=== PATIENT | male | born 1940 | race Caucasian/White ===

== ENCOUNTER 2022-04-17 03:12 | Emergency (ER) | payer OTHER ==
[~2022-04-17] VITALS: Ht 180.3 cm; Wt 88.6 kg
[~2022-04-17 03:12] MED LIST: ACYCLOVIR400 MG PO; ASPIRIN ADULT L81 M2 PO; B12-FOLIC ACID1 EACH PO; CELECOXIB200 M1 PO; CLARITIN10 MG PO; DONEPEZIL HYDROC5 M1 PO; FINASTERIDE5 M1 PO; FLOMAX0.4 MG PO; MULTIVITAMINS1 EAC6 PO; PRAVASTATIN SOD20 MG PO; PRAVASTATIN SOD40 MG PO; RIVASTIGMINE T1.5 M1 PO
== END 2022-04-17 04:18 ==
LOC: ED 03:12
DX: R07.89 Other chest pain (principal); Z88.8 Allergy status to other drugs, medicaments and biological substances; Z79.899 Other long term (current) drug therapy

== ENCOUNTER 2022-04-22 01:14 | Emergency (ER) | payer OTHER ==
[~2022-04-22] VITALS: Ht 170.1 cm; Wt 84.8 kg
[2022-04-22 01:41] LABS: BASO % 0.3 % (0.0-1.0); EOS % 0.3 % (1.0-4.0); HEMATOCRIT 40.5 % (42.0-52.0); LYMPH # 0.8 10*3/uL (1.3-4.4); LYMPH % 12.6 % (27.0-41.0); MEAN CORPUSCULAR HGB 32.3 pg (27.0-31.0); MEAN CORPUSCULAR HGB CONC 34.3 g/dl (33.0-37.0); MONO # 0.8 10*3/uL (0.1-1.0); MONO % 12.7 % (3.0-9.0); NEUT # 4.6 10*3/uL (2.3-7.9); NEUT % 73.6 % (47.0-73.0); PLATELET COUNT AUTOMATED 201 10*3/uL (130-400); RED BLOOD COUNT 4.31 10*6/uL (4.50-5.90); WHITE BLOOD COUNT 6.2 10*3/uL (4.8-10.8)
[2022-04-22 01:54] LABS: BUN 17 mg/dl (9-23); CHLORIDE 101 mmol/L (98-107); POTASSIUM 3.8 mmol/L (3.4-5.1)
[2022-04-22 02:07] LABS: ACT PARTIAL THROMBO TIME 30.1 SECONDS (20.0-32.1)
[2022-04-22 02:30] LABS: BILIRUBIN Negative (Negative); BLOOD Negative (Negative); CLARITY Clear (Clear); COLOR Yellow (Yellow); GLUCOSE Negative (Negative); KETONE Negative (Negative); LEUKO ESTERASE Negative (Negative); NITRITE Negative (Negative); PH 5.5 (4.5-8.0); UROBILINOGEN 0.2 E.U./dl (0.0-1.0)
[2022-04-22 02:50] LABS: EPITHELIAL CELLS 0-2; WBC 0-2 wbc/hpf (0-5)
== END 2022-04-22 04:11 ==
LOC: ED 01:14
PROVIDERS: Emergency Medicine
DX: S00.81XA Abrasion of other part of head, initial encounter (principal); S40.211A Abrasion of right shoulder, initial encounter; S60.511A Abrasion of right hand, initial encounter; E86.0 Dehydration; E87.1 Hypo-osmolality and hyponatremia; Z88.8 Allergy status to other drugs, medicaments and biological substances; Z79.899 Other long term (current) drug therapy; W19.XXXA Unspecified fall, initial encounter; Y93.89 Activity, other specified; Y92.129 Unspecified place in nursing home as the place of occurrence of the external cause; Y99.8 Other external cause status

== ENCOUNTER → 2023-08-18 | Outpatient (CLI) | payer OTHER | END | disposition home or self-care (01) | LOC: CARD 08-03 15:00 | PROVIDERS: ATTEND Internal Medicine Cardiovascular Disease | DX: I08.2 Rheumatic disorders of both aortic and tricuspid valves (principal); I31.39 Other pericardial effusion (noninflammatory); R60.0 Localized edema; R01.1 Cardiac murmur, unspecified; Z95.0 Presence of cardiac pacemaker; Z87.898 Personal history of other specified conditions ==

== ENCOUNTER → 2023-11-17 | Outpatient (CLI) | payer OTHER | END | disposition home or self-care (01) | LOC: ORTHO 02:23 | PROVIDERS: ATTEND Orthopaedic Surgery | DX: S42.201D Unspecified fracture of upper end of right humerus, subsequent encounter for fracture with routine healing (principal); X58.XXXD Exposure to other specified factors, subsequent encounter ==

== ENCOUNTER → 2023-12-03 | Outpatient (CLI) | payer OTHER | END | disposition home or self-care (01) | LOC: ORTHO 02:07 | PROVIDERS: ATTEND Orthopaedic Surgery | DX: S42.201D Unspecified fracture of upper end of right humerus, subsequent encounter for fracture with routine healing (principal); M25.511 Pain in right shoulder; X58.XXXD Exposure to other specified factors, subsequent encounter ==

== ENCOUNTER 2023-12-23 16:04 | Inpatient (IN) | payer OTHER ==
[~2023-12-23] VITALS: Ht 172.7 cm; Wt 78.6 kg
[2023-12-23 16:09] VITALS: BP 133/58
[2023-12-23 17:10] LABS: BASO % 0.1 % (0.0-1.0); HEMATOCRIT 41.8 % (42.0-52.0); MEAN CELL VOLUME 94.4 fl (80.0-94.0); MEAN CORPUSCULAR HGB 32.3 pg (27.0-31.0); MEAN CORPUSCULAR HGB CONC 34.2 g/dl (33.0-37.0); MEAN PLATELET VOLUME 10.6 fl (9.6-12.3); MONO # 0.6 10*3/uL (0.1-1.0); MONO % 6.8 % (3.0-9.0); NEUT # 7.9 10*3/uL (2.3-7.9); NEUT % 86.2 % (47.0-73.0); PLATELET COUNT AUTOMATED 223 10*3/uL (130-400); RED BLOOD COUNT 4.43 10*6/uL (4.50-5.90); RED CELL DISTRI WIDTH 12.1 % (0-14.5); WHITE BLOOD COUNT 9.2 10*3/uL (4.8-10.8)
[2023-12-23 17:36] LABS: BILIRUBIN Negative (Negative); BLOOD Trace-Lysed (Negative); CLARITY Clear (Clear); COLOR Yellow (Yellow); GLUCOSE Negative (Negative); KETONE 3+ (Negative); LEUKO ESTERASE Negative (Negative); NITRITE Negative (Negative); PH 5.5 (4.5-8.0); SPECIFIC GRAVITY 1.025 (1.001-1.030)
[2023-12-23 17:51] LABS: MUCOUS 2+
[2023-12-23 18:10] LABS: BUN 18 mg/dl (9-23); CHLORIDE 108 mmol/L (98-107); POTASSIUM 3.1 mmol/L (3.4-5.1)
[2023-12-23 18:12] LABS: CPK 2333 U/L (34-171)
[2023-12-23] MEDS ORDERED: SODIUM CHLORIDE 0.9% 1,000 ML IV ONE (18:20)
[2023-12-23] MEDS ORDERED: ACETAMINOPHEN 325 MG TAB PO PRN (19:55)
[2023-12-23] MEDS ORDERED: Ondansetron Hydrochloride 4 MG/2 ML VIAL IV PRN (19:55)
[2023-12-23] MEDS ORDERED: TEMAZEPAM 15 MG CAP PO PRN (19:55)
[2023-12-23] MEDS ORDERED: BISACODYL 5 MG TAB PO PRN (19:55)
[2023-12-23] MEDS ORDERED: Acetaminophen/Hydrocodone 5 MG/325 MG TABLET PO PRN (19:55)
[2023-12-23] MEDS ORDERED: Magnesium Hydroxide 30 ML UDC PO PRN (19:55)
[2023-12-23] MEDS ORDERED: BISACODYL 10 MG SUPP R PRN (19:55)
[2023-12-23] MEDS ORDERED: ACETAMINOPHEN 650 MG SUPP R PRN (19:55)
[2023-12-23 20:27] VITALS: BP 130/60
[2023-12-23] MEDS ORDERED: POTASSIUM CHLORIDE 20 MEQ TAB PO ONE (20:40)
[2023-12-23] MEDS ORDERED: SODIUM CHLORIDE 0.9% 1,000 ML IV SCH (20:50)
[2023-12-24 03:13] VITALS: BP 136/71
[2023-12-24 05:14] LABS: VITAMIN D, 25-HYDROXY 25.8 ng/mL (30-100)
[2023-12-24 05:21] LABS: ALKALINE PHOSPHATASE 120 U/L (46-116); BUN 16 mg/dl (9-23); CHLORIDE 110 mmol/L (98-107); CHOLESTEROL 142 mg/dL (<200); CPK 2544 U/L (34-171); FREE T4 0.91 ng/dl (0.89-1.76); LDL CHOLESTEROL 74 mg/dL (9-159); POTASSIUM 2.8 mmol/L (3.4-5.1); SGPT/ALT 32 U/L (5-49); TRIGLYCERIDES 61 mg/dl (<150)
[2023-12-24] MEDS ORDERED: POTASSIUM CHLORIDE 20 MEQ TAB PO ONE ×3 (05:45→16:15)
[2023-12-24 06:01] LABS: BASO % 0.1 % (0.0-1.0); EOS % 0.1 % (1.0-4.0); HEMATOCRIT 38.6 % (42.0-52.0); MEAN CELL VOLUME 95.3 fl (80.0-94.0); MEAN CORPUSCULAR HGB 32.1 pg (27.0-31.0); MEAN CORPUSCULAR HGB CONC 33.7 g/dl (33.0-37.0); MEAN PLATELET VOLUME 10.7 fl (9.6-12.3); MONO # 0.7 10*3/uL (0.1-1.0); MONO % 10.9 % (3.0-9.0); NEUT # 5.1 10*3/uL (2.3-7.9); NEUT % 76.3 % (47.0-73.0); PLATELET COUNT AUTOMATED 180 10*3/uL (130-400); RED BLOOD COUNT 4.05 10*6/uL (4.50-5.90); RED CELL DISTRI WIDTH 12.3 % (0-14.5); WHITE BLOOD COUNT 6.7 10*3/uL (4.8-10.8)
[2023-12-24 08:16] VITALS: BP 165/68
[2023-12-24] MEDS ORDERED: Enoxaparin Sodium 40 MG/0.4 ML SYR SC SCH (10:00)
[2023-12-24] MEDS ORDERED: Vitamin D 1,000 IU TAB (25 MCG) PO SCH (10:00)
[2023-12-24 14:59] LABS: BUN 18 mg/dl (9-23); CHLORIDE 112 mmol/L (98-107); POTASSIUM 3.5 mmol/L (3.4-5.1)
[2023-12-24 16:33] VITALS: BP 165/87
[2023-12-24 20:00] VITALS: BP 146/81
[2023-12-24] MEDS ORDERED: TAMSULOSIN HCL0.4 MG PO (20:14)
[2023-12-24] MEDS ORDERED: DONEPEZIL HYDRO10 MG PO (20:15)
[2023-12-24] MEDS ORDERED: Tamsulosin Hydrochloride 0.4 MG CAP PO SCH (21:40)
[2023-12-24] MEDS ORDERED: CELECOXIB 200 MG CAP PO SCH (22:00)
[2023-12-24] MEDS ORDERED: DONEPEZIL 10 MG TAB PO SCH (22:00)
[2023-12-25] VITALS: BP 144/74
[2023-12-25] MEDS ORDERED: MORPHINE Sulfate 2 MG/ML SYR IV ONE (00:20)
[2023-12-25 05:52] LABS: BUN 17 mg/dl (9-23); CHLORIDE 111 mmol/L (98-107); POTASSIUM 3.5 mmol/L (3.4-5.1)
[2023-12-25 06:14] LABS: BASO % 0.3 % (0.0-1.0); EOS % 0.6 % (1.0-4.0); HEMATOCRIT 38.4 % (42.0-52.0); MEAN CELL VOLUME 96.5 fl (80.0-94.0); MEAN CORPUSCULAR HGB 31.7 pg (27.0-31.0); MEAN CORPUSCULAR HGB CONC 32.8 g/dl (33.0-37.0); MEAN PLATELET VOLUME 10.4 fl (9.6-12.3); MONO # 0.7 10*3/uL (0.1-1.0); MONO % 11.1 % (3.0-9.0); NEUT # 4.9 10*3/uL (2.3-7.9); NEUT % 74.1 % (47.0-73.0); PLATELET COUNT AUTOMATED 173 10*3/uL (130-400); RED BLOOD COUNT 3.98 10*6/uL (4.50-5.90); RED CELL DISTRI WIDTH 12.4 % (0-14.5); WHITE BLOOD COUNT 6.6 10*3/uL (4.8-10.8)
[2023-12-25 06:42] LABS: CPK 1325 U/L (34-171)
[2023-12-25 08:00] VITALS: BP 120/70
[2023-12-25] MEDS ORDERED: FINASTERIDE 5 MG TAB PO SCH (10:00)
[2023-12-25] MEDS ORDERED: SIMVASTATIN 20 MG TAB PO SCH (10:00)
[2023-12-25] MEDS ORDERED: Tamsulosin Hydrochloride 0.4 MG CAP PO SCH (10:00)
[2023-12-25 12:00] VITALS: BP 134/59
[2023-12-25 16:00] VITALS: BP 160/70
[2023-12-25 20:00] VITALS: BP 176/100
[2023-12-25 22:00] VITALS: BP 152/66
[2023-12-26] VITALS: BP 141/62
[2023-12-26 08:00] VITALS: BP 159/67
[2023-12-26 12:00] VITALS: BP 160/70
[2023-12-26 16:00] VITALS: BP 155/75
[2023-12-26 20:00] VITALS: BP 148/70
[2023-12-27 08:00] VITALS: BP 160/58
[2023-12-27 12:00] VITALS: BP 164/84
[2023-12-27 16:00] VITALS: BP 169/71
[2023-12-27 20:00] VITALS: BP 193/98
[2023-12-27] MEDS ORDERED: hydrALAZINE hydrochloride 20 MG/ML VIAL IV ONE (20:55)
[2023-12-27 21:00] VITALS: BP 200/120
[2023-12-27 22:24] VITALS: BP 155/63
[2023-12-28] VITALS: BP 147/74
[2023-12-28 08:00] VITALS: BP 145/48; BP 158/82
[2023-12-28] MEDS ORDERED: SODIUM CHLORIDE 0.9% 1,000 ML IV ONE (08:15)
[2023-12-28 08:31] LABS: ALKALINE PHOSPHATASE 114 U/L (46-116); BUN 17 mg/dl (9-23); CHLORIDE 104 mmol/L (98-107); POTASSIUM 3.5 mmol/L (3.4-5.1); SGPT/ALT 28 U/L (5-49); TOTAL PROTEIN 6.3 gm/dL (6.0-8.0)
[2023-12-28] MEDS ORDERED: LISINOPRIL 5 MG TAB PO SCH (10:00)
[2023-12-28 12:00] VITALS: BP 146/64
[2023-12-28 16:00] VITALS: BP 129/66
[2023-12-28 20:00] VITALS: BP 98/54
[2023-12-29] VITALS: BP 137/79
[2023-12-29 08:00] VITALS: BP 101/55
[2023-12-29 12:00] VITALS: BP 133/70
[2023-12-29] MEDS ORDERED: LISINOPRIL5 MG PO (13:53)
[2023-12-29] MEDS ORDERED: VITAMIN D350 MC2 PO (13:53)
== END 2023-12-29 17:28 | DRG 565 ==
LOC: ED 16:04 → 4E 18:46 → EDHOLD 18:46 → 4E 12-24 16:13
PROVIDERS: Family Medicine; Physician Assistant Medical; Student in an Organized Health Care Education/Training Program; ADMIT Student in an Organized Health Care Education/Training Program; ATTEND Student in an Organized Health Care Education/Training Program
DX: T79.6XXA Traumatic ischemia of muscle, initial encounter (principal); G23.8 Other specified degenerative diseases of basal ganglia; G31.83 Neurocognitive disorder with Lewy bodies; E87.6 Hypokalemia; D53.9 Nutritional anemia, unspecified; Z95.0 Presence of cardiac pacemaker; Z66 Do not resuscitate; R54 Age-related physical debility; F02.80 Dementia in other diseases classified elsewhere, unspecified severity, without behavioral disturbance, psychotic disturbance, mood disturbance, and anxiety; N40.0 Benign prostatic hyperplasia without lower urinary tract symptoms; I25.10 Atherosclerotic heart disease of native coronary artery without angina pectoris; E80.6 Other disorders of bilirubin metabolism; E78.2 Mixed hyperlipidemia; R74.01 Elevation of levels of liver transaminase levels; E55.9 Vitamin D deficiency, unspecified; R00.1 Bradycardia, unspecified; W18.39XA Other fall on same level, initial encounter; Y93.89 Activity, other specified; Y92.89 Other specified places as the place of occurrence of the external cause; Y99.8 Other external cause status; Z88.8 Allergy status to other drugs, medicaments and biological substances; Z79.82 Long term (current) use of aspirin; Z79.899 Other long term (current) drug therapy

== ENCOUNTER → 2024-06-28 | Outpatient (CLI) | payer MEDICARE ==
[~2024-06-28] MED LIST changes: +DONEPEZIL HYDRO10 MG PO; +LISINOPRIL5 MG PO; +OXYCODONE-ACET1 EAC3 PO; +PHARMASSURE V500 MCG PO; +TAMSULOSIN HCL0.4 MG PO; +VITAMIN D350 MC2 PO; +VITAMIN D350 MCG PO
== END | disposition home or self-care (01) ==
LOC: ORTHO 01:33
PROVIDERS: ATTEND Orthopaedic Surgery
DX: S72.034A Nondisplaced midcervical fracture of right femur, initial encounter for closed fracture (principal); X58.XXXA Exposure to other specified factors, initial encounter; Y93.89 Activity, other specified; Y92.89 Other specified places as the place of occurrence of the external cause; Y99.8 Other external cause status

== ENCOUNTER → 2024-07-26 | Outpatient (CLI) | payer MEDICARE | END | disposition home or self-care (01) | LOC: ORTHO 00:56 | PROVIDERS: ATTEND Orthopaedic Surgery | DX: S72.034D Nondisplaced midcervical fracture of right femur, subsequent encounter for closed fracture with routine healing (principal); X58.XXXD Exposure to other specified factors, subsequent encounter ==

== ENCOUNTER → 2024-09-01 | Outpatient (CLI) | payer OTHER | END | disposition home or self-care (01) | LOC: ORTHO 13:41 | PROVIDERS: ATTEND Orthopaedic Surgery | DX: S72.034D Nondisplaced midcervical fracture of right femur, subsequent encounter for closed fracture with routine healing (principal); Z47.89 Encounter for other orthopedic aftercare; X58.XXXD Exposure to other specified factors, subsequent encounter ==

== ENCOUNTER 2024-10-01 20:38 | Emergency (ER) | payer MEDICARE ==
[~2024-10-01] VITALS: Ht 172.7 cm; Wt 68.0 kg
[2024-10-01] MEDS ORDERED: Tdap Vaccine 0.5 ML SYR (Adult Vaccine) IM ONE (21:20)
[2024-10-01 21:52] LABS: BASO # 0.0 10*3/uL (0.0-0.1); BASO % 0.6 % (0.0-1.0); EOS # 0.0 10*3/uL (0.0-0.4); EOS % 0.6 % (1.0-4.0); MEAN CELL VOLUME 98.3 fl (80.0-94.0); MEAN CORPUSCULAR HGB 31.8 pg (27.0-31.0); MEAN PLATELET VOLUME 9.7 fl (9.6-12.3); MONO # 0.5 10*3/uL (0.1-1.0); MONO % 10.2 % (3.0-9.0); NEUT # 3.2 10*3/uL (2.3-7.9); NEUT % 64.8 % (47.0-73.0); NUCLEATED RED BLOOD CELL 0.0 % (0.0-0.0); NUCLEATED RED BLOOD CELL 0.0 10*3/uL (0.0-0.0); PLATELET COUNT AUTOMATED 178 10*3/uL (130-400); RED CELL DISTRI WIDTH 11.9 % (0-14.5)
[2024-10-01 22:19] LABS: BUN 16 mg/dl (9-23); SGPT/ALT 22 U/L (5-49)
[2024-10-01] MEDS ORDERED: hydrALAZINE hydrochloride 20 MG/ML VIAL IV ONE (22:40)
[2024-10-01] MEDS ORDERED: SODIUM CHLORIDE 0.9% 1,000 ML IV ONE (22:45)
== END 2024-10-01 23:19 | disposition short-term general hospital (02) ==
LOC: ED 20:38
PROVIDERS: Nurse Practitioner
DX: I61.9 Nontraumatic intracerebral hemorrhage, unspecified (principal)

== ENCOUNTER 2024-11-10 12:09 | Emergency (ER) | payer OTHER ==
[~2024-11-10] VITALS: Wt 79.8 kg
[2024-11-10] MEDS ORDERED: Acetaminophen/Oxycodone 5 MG/325 MG TABLET PO ONE (12:20)
[2024-11-10] MEDS ORDERED: PERCOCET 5-3251 EACH PO ×2 (14:12→19:00)
== END 2024-11-10 15:57 | disposition home or self-care (01) ==
LOC: ED 12:09
DX: S46.001A Unspecified injury of muscle(s) and tendon(s) of the rotator cuff of right shoulder, initial encounter (principal); Z88.8 Allergy status to other drugs, medicaments and biological substances; Z79.82 Long term (current) use of aspirin; Z79.899 Other long term (current) drug therapy; Z95.0 Presence of cardiac pacemaker; X50.1XXA Overexertion from prolonged static or awkward postures, initial encounter; Y93.89 Activity, other specified; Y92.89 Other specified places as the place of occurrence of the external cause; Y99.8 Other external cause status